=== PATIENT | female | born 1955 | race Caucasian/White ===

== ENCOUNTER 2020-10-27 13:48 | Outpatient (CLI) | payer MEDICARE | END 2020-10-27 13:49 | disposition home or self-care (01) | LOC: CSHMAMMO 13:48 | PROVIDERS: ATTEND Internal Medicine | DX: Z78.0 Asymptomatic menopausal state (principal); M81.0 Age-related osteoporosis without current pathological fracture; M85.852 Other specified disorders of bone density and structure, left thigh | CPT/HCPCS: 77080 ==

== ENCOUNTER 2020-11-21 14:31 | Outpatient (CLI) | payer MEDICARE | END 2020-11-21 14:32 | disposition home or self-care (01) | LOC: CSHMAMMO 14:31 | PROVIDERS: ATTEND Internal Medicine | DX: Z12.31 Encounter for screening mammogram for malignant neoplasm of breast (principal); Z80.3 Family history of malignant neoplasm of breast | CPT/HCPCS: 77063; 77067 ==

== ENCOUNTER 2021-04-25 12:56 | Outpatient (CLI) | payer MEDICARE | END 2021-04-25 12:57 | disposition home or self-care (01) | LOC: CSHCT 12:56 | PROVIDERS: ATTEND Internal Medicine | DX: Z12.2 Encounter for screening for malignant neoplasm of respiratory organs (principal); Z87.891 Personal history of nicotine dependence | CPT/HCPCS: 71271 ==

== ENCOUNTER 2021-11-28 13:56 | Outpatient (CLI) | payer MEDICARE | END 2021-11-28 13:57 | disposition home or self-care (01) | LOC: CSHMAMMO 13:56 | PROVIDERS: ATTEND Internal Medicine | DX: Z12.31 Encounter for screening mammogram for malignant neoplasm of breast (principal); Z80.3 Family history of malignant neoplasm of breast | CPT/HCPCS: 77063; 77067 ==

== ENCOUNTER 2023-12-01 12:49 | Outpatient (CLI) | payer MEDICARE | END 2023-12-01 12:50 | disposition home or self-care (01) | LOC: CSHMAMMO 12:49 | PROVIDERS: ATTEND Internal Medicine | DX: Z12.31 Encounter for screening mammogram for malignant neoplasm of breast (principal); Z80.3 Family history of malignant neoplasm of breast; Z98.82 Breast implant status | CPT/HCPCS: 77063; 77067 ==

== ENCOUNTER 2023-12-01 13:38 | Outpatient (CLI) | payer MEDICARE | END 2023-12-01 13:39 | disposition home or self-care (01) | LOC: CSHCT 13:38 | PROVIDERS: ATTEND Internal Medicine | DX: Z12.2 Encounter for screening for malignant neoplasm of respiratory organs (principal); Z87.891 Personal history of nicotine dependence | CPT/HCPCS: 71271 ==

== ENCOUNTER 2023-12-16 13:47 | Outpatient (CLI) | payer MEDICARE | END 2023-12-16 13:48 | disposition home or self-care (01) | LOC: CSHRAD 13:47 | PROVIDERS: ATTEND Internal Medicine | DX: M54.6 Pain in thoracic spine (principal); M41.9 Scoliosis, unspecified; M47.814 Spondylosis without myelopathy or radiculopathy, thoracic region; M48.54XD Collapsed vertebra, not elsewhere classified, thoracic region, subsequent encounter for fracture with routine healing | CPT/HCPCS: 72070 ==